=== PATIENT | male | born 1965 | race Caucasian/White ===

== ENCOUNTER 2016-06-10 13:54 | Emergency (ER) | payer SELFPAY ==
[2016-06-10] MEDS ORDERED: NORMAL SALINE 1000 ML 1,000 ML IV ONE (15:19)
--- NOTE | 2016-06-10 15:20 | ER Document Report ---
ED Medical Screen (RME) - General Chief Complaint: Chest Pain Stated Complaint: CHEST PAIN Notes: 50-year-old male patient smokes half pack a day, father had first IN probably in his late 50s to early 60s. Patient comes from [place] here to work on the way down developed left-sided chest pain tightness with nausea vomiting and diaphoresis and shortness of breath. Pain goes into the left arm. One of the men in the truck on the way down gave him 3 nitroglycerin which did not seem to help initially but he reports it is a little better now but still quite uncomfortable. Chest wall is minimally tender in the area of his pain, there is no wheezes and rhonchi. I have greeted and performed a rapid initial assessment of this patient. A comprehensive ED assessment and evaluation of the patient, analysis of test results and completion of the medical decision making process will be conducted by additional ED providers. TRAVEL OUTSIDE OF THE [place] IN LAST 30 DAYS: No - Related Data Allergies/Adverse Reactions: No Known Allergies Allergy (Verified 06/10/16 14:37) Past Medical History Renal/ Medical History: Denies: Hx Peritoneal Dialysis Physical Exam - Vital signs Vitals: Temp Pulse Resp BP Pulse Ox 98.2 F 85 18 122/85 98 06/10/16 14:35 06/10/16 14:35 06/10/16 14:35 06/10/16 14:35 06/10/16 14:35 Course - Vital Signs Vital signs: Temp Pulse Resp BP Pulse Ox 98.2 F 85 18 122/85 98 06/10/16 14:35 06/10/16 14:35 06/10/16 14:35 06/10/16 14:35 06/10/16 14:35
[2016-06-10 15:54] LABS: ABSOLUTE BASOPHILS # (AUTO) 0.1 10^3/uL (0.0-0.2); ABSOLUTE EOSINOPHILS # (AUTO) 0.2 10^3/uL (0.0-0.6); ABSOLUTE LYMPHOCYTES (AUTO) 1.9 10^3/uL (0.5-4.7); ABSOLUTE MONOCYTES (AUTO) 0.9 10^3/uL (0.1-1.4); ABSOLUTE NEUT (AUTO) 7.2 10^3/uL (1.7-8.2); BASOPHILS % (AUTO) 0.8 % (0-2); EOSINOPHILS % (AUTO) 1.5 % (0-6); HEMOGLOBIN 16.5 g/dL (13.5-17.0); HGB HCT DIFFERENCE 1.5; LYMPHOCYTES % (AUTO) 18.5 % (13-45); MEAN CORPUSCULAR HEMOGLOBIN 29.3 pg (27.0-33.4); MEAN CORPUSCULAR HGB CONC 34.4 g/dL (32.0-36.0); MEAN CORPUSCULAR VOLUME 85 fl (80-97); MONOCYTES % (AUTO) 9.2 % (3-13); RED BLOOD COUNT 5.64 10^6/uL (4.35-5.55); RED CELL DISTRIBUTION WIDTH 14.1 % (11.5-14.0); WHITE BLOOD COUNT 10.3 10^3/uL (4.0-10.5)
[2016-06-10 16:10] LABS: ALANINE AMINOTRANSFERASE 40 U/L (21-72); ALBUMIN 4.7 g/dL (3.5-5.0); ALKALINE PHOSPHATASE 92 U/L (38-126); ANION GAP 11 (5-19); ASPARTATE AMINO TRANSFERASE 33 U/L (17-59); BILIRUBIN,DIRECT 0.3 mg/dL (0.0-0.4); BILIRUBIN,TOTAL 0.8 mg/dL (0.2-1.3); BLOOD UREA NITROGEN 17 mg/dL (7-20); CALCIUM 9.9 mg/dL (8.4-10.2); CARBON DIOXIDE 26 mmol/L (22-30); CHLORIDE 105 mmol/L (98-107); CREATINE KINASE 221 U/L (55-170); CREATININE RESULT 0.97 mg/dL (0.52-1.25); GLUCOSE 93 mg/dL (75-110); POTASSIUM 4.3 mmol/L (3.6-5.0); SODIUM 141.7 mmol/L (137-145); TOTAL PROTEIN 7.5 g/dL (6.3-8.2)
[2016-06-10 16:22] LABS: CREATINE KINASE MB 2.28 ng/mL (<4.55); TROPONIN I < 0.012 ng/mL
[2016-06-10] MEDS ORDERED: ALBUTEROL SULFATE 0.083% NEB 2.5 MG/3 ML AMPUL NEB ONE (16:25)
[2016-06-10] MEDS ORDERED: METHYLPREDNISOLONE INJ 125 MG/2 ML SDV IV ONE (16:26)
[2016-06-10] MEDS ORDERED: IPRATROPIUM BROMIDE 0.02% NEB 0.5 MG/2.5 ML AMPUL NEB PRN (16:26)
--- NOTE | 2016-06-10 18:51 | ER Document Report ---
ED Cardiac - General Time seen by provider: 16:15 Mode of Arrival: Medic Information source: Patient TRAVEL OUTSIDE OF THE [place] IN LAST 30 DAYS: No - HPI Patient complains to provider of: Chest pain Was the onset of pain: Gradual Chest pain radiation location: Left arm, Right arm Similar symptoms previously: No Recently seen / treated by doctor: No <LUIS CARDOZA - Last Filed: 06/10/16 20:09> <TAD GAR - Last Filed: 06/19/16 16:03> - General Chief Complaint: Chest Pain Stated Complaint: CHEST PAIN Notes: Patient is a 50-year-old male presented to emergency department for chest pain. Patient states that starting Wednesday. He has been having some dizziness, diaphoresis, shortness of breath and feeling faint. Patient states that today he had some left and right arm pain and shortness of breath on the way to work. 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 Patient states that he slumped over his steering well and hit the horn to a coworker to come help him. 911 was patient was called and given 5 nitroglycerin. Patient also complains of some blurry vision, chills, nausea and vomiting; these symptoms started today. Patient states that his chest hurts when he coughs. Patient denies any fever, headache, diarrhea, or sputum. Patient denies any cardiac history or history of COPD; patient states his father has COPD and patient is a smoker. Patient denies any history of chronic cough. Patient denies seasonal flu vaccination this season. Patient's primary care physician is in [place]. Patient has no known allergies. (LUIS CARDOZA) - Related Data Allergies/Adverse Reactions: No Known Allergies Allergy (Verified 06/10/16 14:37) Past Medical History - General Information source: Patient - Social History Smoking Status: Current Every Day Smoker Cigarette use (# per day): Yes - 1/2 ppd Frequency of alcohol use: Occasional Family History: None Patient has suicidal ideation: No Patient has homicidal ideation: No Renal/ Medical History: Reports: Hx Kidney Stones Past Surgical History: Reports: Hx Appendectomy, Hx Kidney (Renal Surgery) - stent <LUIS CARDOZA - Last Filed: 06/10/16 20:09> Review of Systems - Review of Systems Constitutional: No symptoms reported EENT: No symptoms reported Cardiovascular: See HPI, Chest pain, Dizziness Respiratory: See HPI, Cough, Short of breath Gastrointestinal: See HPI, Nausea, Vomiting Genitourinary: No symptoms reported Male Genitourinary: No symptoms reported Musculoskeletal: No symptoms reported Skin: No symptoms reported Hematologic/Lymphatic: No symptoms reported Neurological/Psychological: No symptoms reported -: Yes All other systems reviewed and negative <LUIS CARDOZA - Last Filed: 06/10/16 20:09> Physical Exam - Vital signs Interpretation: Normal - General General appearance: Appears well, Alert In distress: Mild - HEENT Head: Normocephalic, Atraumatic Eyes: Normal Pupils: PERRL Mucous membranes: Moist - Respiratory Respiratory status: No respiratory distress Chest status: Tender - Reproducible anterior wall pain with palpation chest, Other - Nitroglycerin paste was removed from the anterior chest wall during exam Breath sounds: Wheezing - Diffuse wheezing throughout Chest palpation: Normal - Cardiovascular Rhythm: Regular Heart sounds: Normal auscultation Murmur: No - Abdominal Inspection: Normal Distension: No distension Bowel sounds: Normal Tenderness: Nontender Organomegaly: No organomegaly - Back Back: Normal, Nontender - Extremities General upper extremity: Normal inspection, Normal ROM, Normal strength General lower extremity: Normal inspection, Normal ROM, Normal strength - Neurological Neuro grossly intact: Yes Cognition: Normal Orientation: AAOx4 Cody Coma Scale Eye Opening: Spontaneous Muse Coma Scale Verbal: Oriented Cody Coma Scale Motor: Obeys Commands Cody Coma Scale Total: 15 Speech: Normal Sensory: Normal - Psychological Associated symptoms: Normal affect, Normal mood - Skin Skin Temperature: Warm Skin Moisture: Dry <LUIS CARDOZA - Last Filed: 06/10/16 20:09> Course - Laboratory Result Diagrams: 06/10/16 15:34 06/10/16 15:34 <LUIS CARDOZA - Last Filed: 06/10/16 20:09> - Laboratory Result Diagrams: 06/10/16 15:34 06/10/16 15:34 <TAD GAR - Last Filed: 06/19/16 16:03> - Vital Signs Vital signs: Temp Pulse Resp BP Pulse Ox 97.7 F 85 18 121/79 99 06/10/16 20:49 06/10/16 14:35 06/10/16 20:46 06/10/16 20:46 06/10/16 20:46 - Laboratory Laboratory results interpreted by me: 06/10/16 06/10/16 15:34 15:34 RBC 5.64 H RDW 14.1 H Creatine Kinase 221 H Discharge <LUIS CARDOZA - Last Filed: 06/10/16 20:09> <ATD GAR - Last Filed: 06/19/16 16:03> - Discharge Clinical Impression: Acute bronchitis Qualifiers: Bronchitis organism: unspecified organism Qualified Code(s): J20.9 - Acute bronchitis, unspecified Disposition: HOME, SELF-CARE Additional Instructions: Bronchitis You have acute bronchitis. This disease is an infection or inflammation of the air passageways in your lungs. Symptoms usually include cough, low grade fever, shortness of breath, and wheezing. The cough usually persists for a couple of weeks. Most cases of bronchitis get better without antibiotics. We prescribe antibiotics when we believe bacteria are damaging your airways, or if there's high risk the bronchitis will worsen into pneumonia. Increase your fluid intake. A cool mist humidifier may make your lungs more comfortable. An expectorant (cough medicine that loosens phlegm) can help. If you smoke, STOP!!! Recovery from bronchitis can be somewhat slow, but you should see improvement within a day or two. Repeated episodes of bronchitis may result in lung damage -- for example, chronic bronchitis, recurrent pneumonias, or emphysema. Call the doctor if you develop increasing fever, shortness of breath, chest pain, bloody sputum, or otherwise worsen. If you have not improved at all after several days, contact the physician. Prescriptions: Albuterol Sulfate [Proair HFA Inhalation Aerosol 8.5 gm MDI] 2 puff IH Q4H PRN # 1 mdi PRN Reason: Prednisone [Deltasone 20 mg Tablet] 3 tab PO DAILY 5 Days Forms: Return to Work Referrals: LUIS SMITH MD [Primary Care Provider] - Follow up as needed (in 2-3 days return to er sooner for increasing worsening or new symptoms) Scribe Attestation: 06/19/16 16:02 i personally performed the services described in the documentation, reviewed the documentation recorded by the scribe in my presence and it accurately and completely records my words and actions (TAD GAR) Scribe Documentation - Scribe Written by Scribe:: Luis Cardoza 06/10/16 20:15 acting as scribe for :: Jluis <LUIS CARDOZA - Last Filed: 06/10/16 20:09>
[2016-06-10 20:48] VITALS: BP 121/79
--- NOTE | 2016-06-11 15:45 | EKG REPORT ---
SEVERITY:- NORMAL ECG - SINUS RHYTHM : Confirmed by: Ananya Cuello MD 11-Jun-2016 15:44:07
== END 2016-06-10 20:52 | disposition home or self-care (01) ==
LOC: ER 13:54
DX: J20.9 Acute bronchitis, unspecified (principal); R07.89 Other chest pain; R42 Dizziness and giddiness; R61 Generalized hyperhidrosis; R06.02 Shortness of breath; M79.601 Pain in right arm; M79.602 Pain in left arm; H53.8 Other visual disturbances; R68.83 Chills (without fever); R11.2 Nausea with vomiting, unspecified; R05 Cough; R06.2 Wheezing; F17.210 Nicotine dependence, cigarettes, uncomplicated; Z82.5 Family history of asthma and other chronic lower respiratory diseases
CPT/HCPCS: 93005; 94640 ×2; 99285; 96361; 96374; 36415; 82553; 82550; 85025; 80053; 84484; 85379; 71010; 93010; J2930; J7030; J3490